=== PATIENT | female | born 1990 | race Two or more races ===

== ENCOUNTER 2016-08-07 00:07 | Emergency (ER) | payer OTHER ==
[~2016-08-07] VITALS: Ht 167.6 cm; Wt 60.9 kg
[~2016-08-07 00:07] MED LIST: CIPRO500 MG PO; NAPROSYN500 MG PO; PYRIDIUM200 MG PO; ULTRAM50 MG PO
[2016-08-07 00:24] LABS: ADD MIUA? YES; BILIRUBIN NEGATIVE; BLOOD NEGATIVE; COLOR YELLOW ((YELLOW)); GLUCOSE (STRIP) NEGATIVE; KETONES NEGATIVE; LEUKOCYTES TRACE; NITRITE NEGATIVE; PROTEIN (STRIP) NEGATIVE; SPECIFIC GRAVITY 1.019 (1.000-1.030); UROBILINOGEN 0.2 MG/DL (0.2-1.0)
[2016-08-07 00:31] LABS: BACTERIA NONE SEEN /HPF; EPITHELIAL CELLS 1+ /HPF; MUCUS TRACE /LPF; RED BLOOD CELLS 0-5 /HPF (0-5); UCUL ADDED? NO; WHITE BLOOD CELLS 0-5 /HPF (0-5)
[2016-08-07 00:46] LABS: HEMATOCRIT 42.9 % (36.0-46.0); MCH 32.5 PG (29.0-34.0); MCHC 34.3 G/DL (30.0-36.0); MCV 94.7 FL (83-99); MEAN PLAT.VOLUME 10.2 uM^3 (9.5-12.4); PLATELET COUNT 264 K/uL (156-360); RBC DIS.WIDTH-CV 11.9 % (11.8-14.6); RBC DIS.WIDTH-SD 41.6 % (39-53); RED BLOOD COUNT 4.53 M/uL (3.80-5.20); WHITE BLOOD COUNT 9.1 K/uL (4.1-10.2)
[2016-08-07 00:58] LABS: CHLORIDE 109 mEq/L (99-109); SODIUM 144 mEq/L (136-147)
[2016-08-07 01:01] LABS: GLUCOSE 92 mg/dL (70-99)
[2016-08-07 01:02] LABS: ANION GAP 8 MEQ/L (2-14)
[2016-08-07 01:03] LABS: TOTAL BILIRUBIN 0.3 mg/dL (0.0-1.0)
[2016-08-07 01:04] LABS: ALKALINE PHOSPHATASE 57 IU/L (3-129); GFR ESTIMATE (CALCULATED) > 59 mL/min/
[2016-08-07 01:05] LABS: UREA NITROGEN (BUN) 10 mg/dL (9-23)
[2016-08-07 01:14] LABS: QUANTITATIVE HCG < 4.0 MIU/ML
[2016-08-07] MEDS ORDERED: CIPRO500 MG PO (01:43)
[2016-08-07] MEDS ORDERED: KEFLEX500 MG PO (01:54)
[2016-08-07 01:58] VITALS: BP 122/77
== END 2016-08-07 01:59 | disposition home or self-care (01) ==
LOC: EME 00:07
DX: N30.00 Acute cystitis without hematuria (principal); F17.200 Nicotine dependence, unspecified, uncomplicated
CPT/HCPCS: 80053; 81003; 84702; 85027; 99281; 99283

== ENCOUNTER 2017-06-03 19:22 | Emergency (ER) | payer OTHER ==
[~2017-06-03] VITALS: Ht 170.2 cm; Wt 62.2 kg
[~2017-06-03 19:22] MED LIST changes: +KEFLEX500 MG PO
[2017-06-03 19:23] VITALS: BP 155/93
[2017-06-03] MEDS ORDERED: FLONASE ALLERG9.9 ML BOTH NARES (20:31)
== END 2017-06-03 20:58 | disposition home or self-care (01) ==
LOC: EME 19:22
DX: J32.9 Chronic sinusitis, unspecified (principal); F41.9 Anxiety disorder, unspecified; F17.200 Nicotine dependence, unspecified, uncomplicated; Z87.440 Personal history of urinary (tract) infections; Z90.49 Acquired absence of other specified parts of digestive tract
CPT/HCPCS: 99281; 99283

== ENCOUNTER 2017-09-09 16:06 | Emergency (ER) | payer OTHER ==
[~2017-09-09] VITALS: Ht 170.2 cm; Wt 60.0 kg
[~2017-09-09 16:06] MED LIST changes: +FLONASE ALLERG9.9 ML BOTH NARES
[2017-09-09 17:43] LABS: APPEARANCE SL.HAZY ((CLEAR)); BILIRUBIN NEGATIVE; BLOOD NEGATIVE; COLOR YELLOW ((YELLOW)); GLUCOSE (STRIP) NEGATIVE; KETONES 5; LEUKOCYTES NEGATIVE; NITRITE NEGATIVE; PROTEIN (STRIP) 30; SPECIFIC GRAVITY 1.033 (1.000-1.030)
[2017-09-09 17:44] LABS: HEMATOCRIT 41.7 % (36.0-46.0); HEMOGLOBIN 14.5 G/DL (11.9-15.5); MCH 32.9 PG (29.0-34.0); MCHC 34.8 G/DL (30.0-36.0); MCV 94.6 FL (83-99); PLATELET COUNT 281 K/uL (156-360); RBC DIS.WIDTH-CV 11.5 % (11.8-14.6); RBC DIS.WIDTH-SD 39.8 % (39-53); RED BLOOD COUNT 4.41 M/uL (3.80-5.20); WHITE BLOOD COUNT 7.8 K/uL (4.1-10.2)
[2017-09-09 17:48] LABS: BACTERIA NONE SEEN /HPF; EPITHELIAL CELLS 1+ /HPF; MUCUS 2+ /LPF; UCUL ADDED? NO; WHITE BLOOD CELLS 0-5 /HPF (0-5)
[2017-09-09 18:07] LABS: ALBUMIN 4.1 G/DL (3.2-4.8); CHLORIDE 106 MEQ/L (99-109); POTASSIUM 4.6 MEQ/L (3.7-5.4); SODIUM 141 MEQ/L (136-147); TOTAL BILIRUBIN 0.3 MG/DL (0.0-1.0)
[2017-09-09 18:13] LABS: ALKALINE PHOSPHATASE 43 IU/L (3-129); ALT (GPT) 7 IU/L (3-49); AST (GOT) 12 IU/L (2-34); CREATININE 0.9 MG/DL (0.6-1.3); GFR ESTIMATE (CALCULATED) > 59 mL/min/; GLUCOSE 75 mg/dL (70-99); QUANTITATIVE HCG < 4.0 MIU/ML; TOTAL PROTEIN 6.8 G/DL (6.4-8.3); UREA NITROGEN (BUN) 11 mg/dL (9-23)
[2017-09-09 21:31] LABS: SOURCE SWAB
[2017-09-09] MEDS ORDERED: NAPROXEN500 MG PO (21:31)
[2017-09-09 21:59] VITALS: BP 114/76
== END 2017-09-09 22:00 | disposition home or self-care (01) ==
LOC: EME 16:06
PROVIDERS: Physician Assistant Medical
DX: R10.2 Pelvic and perineal pain (principal); Z87.440 Personal history of urinary (tract) infections; F17.200 Nicotine dependence, unspecified, uncomplicated
CPT/HCPCS: 76856; 80053; 81003; 84702; 85027; 87210; 87491; 87591; 99281; 99284; J1885